=== PATIENT | male | born 1995 | race African-American/Black ===

== ENCOUNTER 2020-01-21 08:07 | Emergency (ER) | payer OTHER, SELFPAY ==
--- NOTE | 2020-01-21 08:11 | ED.GENADULT ---
HPI - General Adult General Chief complaint: Upper Respiratory Infection Stated complaint: not feeling well Time Seen by Provider: 01/21/20 08:11 Source: patient Mode of arrival: ambulatory Limitations: no limitations History of Present Illness HPI narrative: 24-year-old male patient presents to the [facility] with complaints of cold symptoms for the past 6 days. Patient states started with a fever as high as 100. Patient states he has not had a fever recently. Patient states he was tested for COVID yesterday and it came back negative. Patient states he has had sneezing, runny nose, some fullness to the ears, drainage. Patient states at times his chest feels heavy but no shortness of breath or chest pain. No coughing. No abdominal pain, nausea, vomiting or diarrhea. Patient states he has been taking DayQuil and NyQuil for symptoms. Related Data Allergies Allergy/AdvReac Type Severity Reaction Status Date / Time No Known Allergies Allergy Verified 01/21/20 08:31 Review of Systems Review of Systems: Narrative: CONSTITUTIONAL: Positive fever, chills, or sweats. EYES: Denies visual changes, redness, or discharge. ENT: Positive rhinorrhea, sneezing, congestion, denies sore throat, or otalgia. Positive fullness to bilateral ears CARDIOVASCULAR: Denies chest pain, palpitations, or edema. RESPIRATORY: Denies cough or dyspnea. GASTROINTESTINAL: Denies abdominal pain, nausea, vomiting, or diarrhea. GENITOURINARY: Denies dysuria or hematuria. SKIN: Denies rash or itching. MUSCULOSKELETAL: Denies back pain, joint pain, or myalgia. NEUROLOGIC: Denies headache, numbness, or weakness. PSYCHIATRIC: Denies anxiety or depression. PMFSH Social History Social History Gender identity (if verbalized by the patient): Male Comments At the time of my signature I agree with nursing past medical history, surgical, social, and family history. There is no relevant family history pertinent to the presenting complaint. Exam Narrative: Exam Narrative: GENERAL: Well-appearing, well-nourished, and in no acute distress. HEAD: Normocephalic, atraumatic. EYES: PERRLA and EOMI. ENT: Nares with erythema and edema noted bilaterally, clear rhinorrhea, no epistaxis. Mucous membranes moist. Posterior pharynx with slight erythema present no tonsil enlargement, no exudates or lesions present. Bilateral TMs do have some injection but no erythema to the TM, slight fluid noted behind left ear. NECK: Supple. No lymphadenopathy CHEST: Clear to auscultation. No respiratory distress. Patient able talk in clear complete sentences. No tripoding noted. HEART: Regular rate and rhythm. No murmur heard. Normal peripheral pulses. ABDOMEN: Soft, nontender, nondistended, normal active bowel sounds. EXTREMITIES: Normal range of motion. No edema. SKIN: Warm, dry, no rash. NEURO: No focal deficits. Alert and oriented x3. Course Reevaluation(s) Reevaluation #1: Reevaluated patient after clinical and strep are resulted. Discussed with flu and strep today are negative. Discussed with mother that I think this is most likely sinus issues or allergic rhinitis due to the fact that he has sneezing symptoms. Discussed with him and we will send him home with a daily antihistamine as well as a nasal steroid to help the symptoms. Discussed with him that since he does have URI symptoms and even though he did have a negative COVID test like still cannot release him back to work he needs to refer either to the [facility] department or his employer on when he can return to work after having a negative COVID test. Patient verbalized understanding of this denies any other questions or concerns at this time. Date: 01/21/20 Time: 08:54 Vital Signs Vital signs: Vital Signs Temperature 36.7 C 01/21/20 08:21 Pulse Rate 79 01/21/20 08:21 Respiratory Rate 16 01/21/20 08:21 Blood Pressure 137/91 H 01/21/20 08:21 Pulse Oximetry
[2020-01-21 08:21] VITALS: BP 137/91; PULSE 79; RESP 16; TEMP 36.7; O2SAT 99
== END 2020-01-21 08:52 | disposition home or self-care (01) ==
PROVIDERS: Emergency Provider Nurse Practitioner Family
DX: J06.9 Acute upper respiratory infection, unspecified (principal); J30.2 Other seasonal allergic rhinitis
CPT/HCPCS: 87081; 87804; 87880; 99213; G0463

== ENCOUNTER 2020-01-23 08:09 | Emergency (ER) | payer OTHER, SELFPAY ==
--- NOTE | ~2020-01-23 | XR_ITS ---
EXAMINATION: XR chest 2V EXAM DATE: 01/23/2020 09:12 INDICATION: Right rib pain. Lifting injury. TECHNIQUE: Frontal and lateral projections of the chest obtained and reviewed. There is no prior natalie dy for comparison. FINDINGS: The lungs are clear. There are no pleural effusions. The cardiomediastinal silhouette is within normal limits. There is no pneumothorax suspected. The bones and soft tissues are unremarkab le. IMPRESSION: Normal chest x-ray exam. Reviewed, dictated and finalized at location A. IMPRESSION: Normal chest x-ray exam.
[2020-01-23 08:15] VITALS: BP 148/100; PULSE 74; RESP 18; TEMP 36.7; O2SAT 100
[2020-01-23] MEDS: KETOROLAC 30 MG/ML VIAL (*BKC) IV PUSH (09:02)
[2020-01-23 09:04] LABS: Basophils Absolute Auto 0.1 K/mm3 (0.0-0.1); Basophils Percent Auto 0.8 % (0.2-1.2); Eosinophils Absolute Auto 0.1 K/mm3 (0-0.3); Eosinophils Percent Auto 1.1 % (0-4.4); Hematocrit 42.8 % (42.0-52.0); Immature Granulocyte Absolute 0.01 K/mm3 (0.00-0.031); Immature Granulocyte Percent A 0.2 % (0-0.5); Lymphocytes Absolute Auto 1.73 K/mm3 (0.9-3.2); Mean Corpuscular HGB Conc 32.7 g/dl (32-36); Mean Corpuscular Hemoglobin 28.4 pg (26-34); Mean Corpuscular Volume 86.8 fl (80-100); Mean Platelet Volume 9.9 fl (7.4-10.4); Monocytes Absolute Auto 0.3 K/mm3 (0.1-0.6); Monocytes Percent Auto 5.5 % (2.6-8.5); Neutrophils Percent Auto 64.4 % (45.5-73.1); Platelet Count Result 182 k/mm3 (150-375); Red Blood Count 4.93 M/mm3 (4.6-6.20); Red Cell Distribution Width 14.6 % (11.5-14.5); White Blood Count 6.2 K/mm3 (4.5-10.0)
[2020-01-23 09:06] LABS: Add Urine Microscopic? NO; Appearance Urine Clear (Clear); Bilirubin Urine Negative (Negative); Blood Urine Negative (Negative); Color Urine Yellow (Yellow); Glucose Urine UA Negative (Negative); Ketones Urine Negative (Negative); Leukocyte Esterase Ur Negative LEU/UL (Negative); Nitrate Urine Negative (Negative); Protein Urine Negative (Negative); Specific Grav Ur 1.027 (1.001-1.035); Urobilinogen Urine Negative mg/dL (<2.0)
[2020-01-23 09:15] LABS: Alanine Aminotransferase 19 U/L (4-50); Albumin Level 4.2 g/dL (3.5-5.1); Alkaline Phosphatase 52 U/L (38-126); Anion Gap 3 mmol/L (8-16); Aspartate Amino Transferase 28 U/L (17-59); Bilirubin,Total 0.5 mg/dL (0.2-1.3); Blood Urea Nitrogen 13 mg/dL (9-20); Calcium 8.8 mg/dL (8.4-10.2); Carbon Dioxide 31 mmol/L (22-30); Chloride 103 mmol/L (98-107); Estimated CRCL calculation 122 ml/min; Estimated Glomerular Filt Rate > 60; Glucose 100 mg/dL (75-110); Lipase 39 U/L (23-300); Sodium 137 mmol/L (137-145)
[2020-01-23 09:19] LABS: Prothrombin Time 13.2 Seconds (11.1-14.7)
[2020-01-23 09:41] LABS: D Dimer 0.27 ug/mL (<0.48)
[2020-01-23 09:42] VITALS: BP 149/92; PULSE 87; RESP 18; O2SAT 100
--- NOTE | 2020-01-23 11:03 | ED.GENADULT ---
HPI - General Adult General Chief complaint: Unspecified Stated complaint: rt rib pain Time Seen by Provider: 01/23/20 08:26 Source: patient Mode of arrival: ambulatory Limitations: no limitations History of Present Illness HPI narrative: This patient is a 24 year old male who presents for right rib pain. He states he developed right lateral rib pain Thursday after caring his son. He denies any other trauma. He denies cough, fever, sob, nausea or vomiting. He denies abdominal pain. He has not taken anything for pain. Related Data Allergies Allergy/AdvReac Type Severity Reaction Status Date / Time No Known Allergies Allergy Verified 01/21/20 08:31 Review of Systems Review of Systems: All systems reviewed & are unremarkable except as noted in HPI and below Constitutional: Constitutional: Denies chills and Denies fever(s) ENT: Denies dizziness Respiratory: Respiratory: Denies cough, Denies dyspnea and Denies wheezing Gastrointestinal: Gastrointestinal: Denies abdominal pain, Denies nausea and Denies vomiting PMFSH Past Medical History Medical History (Updated 01/23/20 @ 11:26 by Cookie Meneses MD) Patient denies medical problems Surgical History Surgical History (Updated 01/23/20 @ 11:05 by Cookie Meneses MD) No pertinent past surgical history Social History Social History Gender identity (if verbalized by the patient): Male Exam Const: General: no acute distress and alert Orientation/consciousness: patient oriented x3 Eyes: Pupils: Equal, round and reactive pupils present EOM: EOMs intact bilaterally Neck: Neck: normal visual inspection and no lymphadenopathy Chest: Chest palpation & inspection: tenderness (right lateral rib) Resp: Effort & Inspection: normal respiratory effort, no retractions and no use of accessory muscles Auscultation: clear to auscultation bilaterally Cardio: Rate: regular rate Rhythm: regular rhythm Heart sounds: no murmurs GI: GI Palp: Yes Soft to palpation, No Tenderness to palpation present (GI), No Guarding due to palpation present (GI), No Rigid due to palpation and No Hernia present Back/Spine/Pelvis: Back: no CVA tenderness Skin: General skin exam: normal color Rashes: no rashes Neuro: General: patient oriented x3, moves all extremities and CN's II-XI intact bilaterally Extrem: General: normal to inspection Psych: Mental Status: mental status grossly normal Affect: normal affect Course Reevaluation(s) Reevaluation #1: I Discussed with patient that labs are unremarkable. His pain has improved. This appears to be muscular. Date: 01/23/20 Time: 11:25 Vital Signs Vital signs: Vital Signs Temperature 98.0 F 01/23/20 08:15 Pulse Rate 74 01/23/20 08:15 Respiratory Rate 18 01/23/20 08:15 Blood Pressure 148/100 H 01/23/20 08:15 Pulse Oximetry 100 01/23/20 08:15 Temperature 98.0 F 01/23/20 08:15 Pulse Rate 78 01/23/20 11:45 Respiratory Rate 16 01/23/20 11:45 Blood Pressure 118/75 01/23/20 11:45 Pulse Oximetry 100 01/23/20 11:45 Medical Decision Making Vital Signs Vital Signs: Vital Signs Temperature 98.0 F 01/23/20 08:15 Pulse Rate 74 01/23/20 08:15 Respiratory Rate 18 01/23/20 08:15 Blood Pressure 148/100 H 01/23/20 08:15 Pulse Oximetry 100 01/23/20 08:15 Temperature 98.0 F 01/23/20 08:15 Pulse Rate 78 01/23/20 11:45 Respiratory Rate 16 01/23/20 11:45 Blood Pressure 118/75 01/23/20 11:45 Pulse Oximetry 100 01/23/20 11:45 Lab Data Lab results reviewed: Yes I reviewed the patient's lab results. Result diagrams: 01/23/20 08:51 01/23/20 08:51 Labs: Lab Results 01/23/20 01/23/20 01/23/20 Range/Units 08:51 08:51 08:51 WBC 6.2 (4.5-10.0) K/mm3 RBC 4.93 (4.6-6.20) M/mm3 Hgb 14.0 (14.0-18.0) g/dL Hct 42.8 (42.0-52.0) % MCV 86.8 (80-100) f
--- NOTE | 2020-01-23 11:07 | PC.NURSE ---
REPORT GIVEN TO CRYSTAL MOCTEZUMA AT THE BEDSIDE AT THIS TIME, SHE HAS ASSUMED PT CARE.
[2020-01-23 11:45] VITALS: BP 118/75; PULSE 78; RESP 16; O2SAT 100
== END 2020-01-23 11:46 | disposition home or self-care (01) ==
PROVIDERS: Emergency Provider General Practice
DX: R07.81 Pleurodynia (principal)
CPT/HCPCS: 36415; 71046; 80053; 81003; 83690; 85025; 85380; 85610; 85730; 96374; 99284; J1885

== ENCOUNTER 2021-02-17 16:59 | Emergency (ER) | payer OTHER, SELFPAY ==
--- NOTE | ~2021-02-17 | CT_ITS ---
EXAMINATION: CT abdomen pelvis w con DATE: 02/17/2021 19:58 INDICATION: Flank pain TECHNIQUE: Computed tomography (CT) of the abdomen and pelvis was performed with 100 mL Omnipaque-350 intravenous contrast. Automated exposure control and iterative reconstruction technique were employe d. The dose-length product was 250.79 mGy-cm. COMPARISON: None FINDINGS: Lung bases are clear. Heart size is normal. No pericardial or pleural effusion. Focal hepatic steatos is at the ligamentum teres. Gallbladder, spleen, pancreas, bilateral adrenal glands and kidneys are n ormal. No abnormal bowel wall thickening or obstruction. Appendix is normal. Bladder is normal. No fr ee intraperitoneal gas or fluid. No pathologically enlarged abdominal or pelvic lymphadenopathy. Bone s are unremarkable. IMPRESSION: 1. No urolithiasis or acute intra-abdominal/pelvic process. Reviewed, dictated and finalized at location A.
[2021-02-17 17:07] VITALS: BP 115/88; PULSE 71; RESP 18; TEMP 36.7; O2SAT 98
[2021-02-17 18:39] LABS: Add Urine Microscopic? YES; Bilirubin Urine Negative (Negative); Blood Urine 3+ (Negative); Glucose Urine UA Negative (Negative); Ketones Urine Negative (Negative); Leukocyte Esterase Ur Negative LEU/UL (Negative); Nitrate Urine Negative (Negative); Protein Urine 3+ mg/dL (Negative); Urobilinogen Urine Negative mg/dL (<2.0)
[2021-02-17 18:40] LABS: Specific Grav Ur 1.031 (1.001-1.035)
[2021-02-17 18:41] LABS: Appearance Urine Turbid (Clear); Color Urine Dark Red (Yellow)
[2021-02-17 18:45] LABS: RBC Urine >75 /hpf (0-2); WBC Urine 0-3 /hpf
[2021-02-17 19:25] VITALS: BP 137/81; PULSE 65; RESP 16; O2SAT 100
[2021-02-17 19:28] LABS: Basophils Percent Auto 0.7 % (0.2-1.2); Eosinophils Absolute Auto 0.1 K/mm3 (0-0.3); Eosinophils Percent Auto 1.5 % (0-4.4); Hematocrit 46.2 % (42.0-52.0); Immature Granulocyte Absolute 0.01 K/mm3 (0.00-0.031); Immature Granulocyte Percent A 0.2 % (0-0.5); Lymphocytes Absolute Auto 2.23 K/mm3 (0.9-3.2); Lymphocytes Percent Auto 36.4 % (18.3-44.2); Mean Corpuscular HGB Conc 32.5 g/dl (32-36); Mean Corpuscular Hemoglobin 28.7 pg (26-34); Mean Corpuscular Volume 88.3 fl (80-100); Mean Platelet Volume 9.8 fl (7.4-10.4); Monocytes Absolute Auto 0.5 K/mm3 (0.1-0.6); Monocytes Percent Auto 8.5 % (2.6-8.5); Neutrophils Absolute Auto 3.2 K/mm3 (1.3-6.7); Neutrophils Percent Auto 52.7 % (45.5-73.1); Platelet Count Result 172 k/mm3 (150-375); Red Blood Count 5.23 M/mm3 (4.6-6.20); Red Cell Distribution Width 15.4 % (11.5-14.5); White Blood Count 6.1 K/mm3 (4.5-10.0)
[2021-02-17] MEDS: SODIUM CHLORIDE 0.9% IV 1,000 ML 999 ML IV CONT (19:33)
[2021-02-17 19:39] LABS: Alanine Aminotransferase 19 U/L (4-50); Albumin Level 5.3 g/dL (3.5-5.1); Alkaline Phosphatase 65 U/L (38-126); Anion Gap 10 mmol/L (8-16); Aspartate Amino Transferase 30 U/L (17-59); Bilirubin,Total 0.7 mg/dL (0.2-1.3); Blood Urea Nitrogen 14 mg/dL (9-20); Calcium 9.8 mg/dL (8.4-10.2); Carbon Dioxide 32 mmol/L (22-30); Chloride 99 mmol/L (98-107); Estimated CRCL calculation 96 ml/min; Estimated Glomerular Filt Rate > 60; Glucose 95 mg/dL (65-110); Lipase 53 U/L (23-300); Potassium 3.9 mmol/L (3.4-5.0); Sodium 141 mmol/L (137-145)
--- NOTE | 2021-02-17 20:30 | ED.MALEGU ---
HPI - Male Genitourinary General Chief complaint: Urogenital-Male Stated complaint: unable to urinate, hematuria Time Seen by Provider: 02/17/21 17:14 Source: patient Mode of arrival: ambulatory Limitations: no limitations History of Present Illness HPI Narrative: 25-year-old male complaining of 2-week to 3-week history of blood in his ejaculate now with gross hematuria. No flank pain, no urethral trauma, denies fever, denies urethral discharge. No previous history of same. No scrotal pain no scrotal swelling no scrotal masses per patient. Patient was seen by primary doctor and was given a Cipro prescription on Thursday but he still having gross heamturia from the urethral meatus. Related Data Allergies Allergy/AdvReac Type Severity Reaction Status Date / Time No Known Allergies Allergy Verified 02/17/21 17:17 Review of Systems Review of Systems: CONSTITUTIONAL: no fever, no weight loss, no confusion EYES: no vision changes, no eye pain ENT: no rhinorrhea, no sore throat, no difficulty swallowing CARDIOVASCULAR: no chest pain, no leg edema, no palpitations RESPIRATORY: no cough, no shortness of breath, no hemoptysis GASTROINTESTINAL: no abdominal pain, no nausea, no vomiting, no diarrhea GENITOURINARY: no flank pain, no dysuria, painless gross hematuria SKIN: no rash, no jaundice MUSCULOSKELETAL: no back pain, no trauma. NEUROLOGIC: No headache, no dizziness, no focal weakness PSYCHIATRIC: No hallucinations, no suicidal ideation PMFSH Past Medical History Medical History Patient denies medical problems Surgical History Surgical History No pertinent past surgical history Social History Social History Gender identity (if verbalized by the patient): Male Exam Narrative: General: alert, afebrile, answering all questions appropriately Head: normocephalic, atraumatic Eyes: EOMI bilaterally, anicteric, no injection ENT: moist mucous membranes, oropharynx patent, no rhinorrhea Neck: supple, trachea midline, no JVD Chest: equal chest rise bilaterally, no chest wall trauma noted Abd: soft, non-distended, non-tender, no rebound, no gaurding, negative Noriega's : no CVA tenderness B, bladder non-distended, no scrotal swelling, no uretheral discharge Back: no lumbar bony tenderness. paraspinal muscles without spasm EXT: no deformity noted, moving all extremities equally Skin: warm, dry, no pallor Neuro: alert, oriented x 3; CN 2-12 grossly intact, no dysarthria Psych: affect appropriate, though content normal Course Vital Signs Vital signs: Vital Signs Temperature 36.7 C 02/17/21 17:07 Pulse Rate 71 02/17/21 17:07 Respiratory Rate 18 02/17/21 17:07 Blood Pressure 115/88 02/17/21 17:07 Pulse Oximetry 98 02/17/21 17:07 Temperature 36.7 C 02/17/21 17:07 Pulse Rate 81 02/17/21 21:35 Respiratory Rate 16 02/17/21 21:35 Blood Pressure 128/95 H 02/17/21 21:35 Pulse Oximetry 100 02/17/21 21:35 MDM - Male Genitourinary MDM Narrative Medical decision making narrative: Patient taking Cipro but now with gross hematuria painless denies STD risk factors, urine is grossly bloody. No fever, no flank pain, no abdominal pain no recent weight loss denies scrotal masses and scrotal swelling and scrotal pain. No previous history of same Differential Diagnosis Differential diagnosis: Likely urinary tract infection, urethritis, epididymitis, prostatitis and other (Urethral trauma,) Medical Records Attestation: I reviewed the patient's medical records. Lab Data Attestation: I reviewed the patient's lab results. Result diagrams: 02/17/21 19:20 02/17/21 19:20 Labs: Lab Results 02/17/21 02/17/21 02/17/21 Range/Units 18:21 19:20 19:20 WBC 6.1 (4.5-10.0) K/mm3 RBC 5.23 (4.6-6.20) M/mm3 Hgb 15.0
[2021-02-17 21:35] VITALS: BP 128/95; PULSE 81; RESP 16; O2SAT 100
== END 2021-02-17 21:36 | disposition home or self-care (01) ==
PROVIDERS: Emergency Provider Emergency Medicine; PCP Internal Medicine
DX: R31.0 Gross hematuria (principal)
CPT/HCPCS: 36415; 74177; 80053; 81001; 83690; 83735; 85025; 87491; 87591; 96360; 99284; J7030; Q9967

== ENCOUNTER 2021-02-18 07:37 | Outpatient (CLI) | payer OTHER, SELFPAY ==
--- NOTE | ~2021-02-18 | US_ITS ---
EXAMINATION: US scrotum doppler DATE: 02/18/2021 08:45 INDICATION: Gross hematuria TECHNIQUE: Testicular sonogram utilizing grayscale and Doppler COMPARISON: None. FINDINGS: The right testis measures 4.2 x 3.3 x 2.0 cm. The left testis measures 2.8 x 3.1 x 1.7 cm. Symmetric normal grayscale appearance to both testes. There is normal vascular flow to both testes. The right e pididymis is normal with normal vascular flow. The left epididymis is normal with normal vascular eugene w. There is no varicocele or hydrocele. IMPRESSION: 1. Normal scrotal ultrasound. Reviewed, dictated and finalized at location A.
== END 2021-02-18 07:38 | disposition home or self-care (01) ==
PROVIDERS: PCP Internal Medicine; Visit Provider Urology
DX: R31.0 Gross hematuria (principal)
CPT/HCPCS: 76870; 93976

== ENCOUNTER 2021-05-06 11:16 | Emergency (ER) | payer OTHER, SELFPAY ==
[2021-05-06 11:52] VITALS: BP 127/84; PULSE 85; RESP 16; TEMP 37.8; O2SAT 100
--- NOTE | 2021-05-06 12:53 | ED.NAVMDI ---
HPI - Nausea/Vomiting/Diarrhea General Chief complaint: Nausea/Vomiting/Diarrhea Stated complaint: nausea congestion achey Source: patient and RN notes reviewed Mode of arrival: ambulatory History of Present Illness HPI Narrative: This is a 25-year-old male who presented to urgent care today with complaints of nausea vomiting , shortness of breath ,back and stomach pain, congestion, headache, nonproductive cough. According to patient he developed symptoms. He did not take anything at home to relieve the symptoms. The patient denies CP, palpitation, extremity numbness, lightheadedness, dizziness, constipation, chills, or fever. Related Data Allergies Allergy/AdvReac Type Severity Reaction Status Date / Time No Known Allergies Allergy Verified 02/17/21 17:17 Review of Systems Review of Systems: A 14 organ system Review of Systems was performed and pertinent positives included in the HPI, otherwise remaining ROS is negative. [facility] Past Medical History Medical History Patient denies medical problems Surgical History Surgical History No pertinent past surgical history Family History Family History (Updated 05/06/21 @ 12:55 by FRANSISCA Baldwin) Other Family history non-contributory Social History Social History Gender identity (if verbalized by the patient): Male Exam Narrative: GENERAL: This is a well-nourished, well-developed patient, in no apparent distress. HEAD: normocephalic, atraumatic. EYES: PERRL. Sclera clear/white. Vision is grossly intact. EARS: External ears normal, auditory canals clear and without drainage, TMs normal without perforation. Hearing grossly intact. NOSE: External nose normal with no obvious nasal discharge, nares without redness, no rhinorrhea. THROAT: Mucous membranes moist, posterior pharynx clear. NECK: Neck supple, non-tender without lymphadenopathy, masses or thyromegaly. CARDIOVASCULAR: Regular rate and rhythm without murmurs, gallops, or rubs. RESPIRATORY: Clear to auscultation. Breath sounds equal bilaterally. No wheezes, rales, or rhonchi. GASTROINTESTINAL: Abdomen soft, non-tender, nondistended. Bowel sounds are active. No hepato-splenomegaly, or palpable masses. No guarding. SKIN: warm, intact with no suspicious lesions or rash, good texture and turgor. NEURO: awake, alert, and oriented to person, place and time. There were no obvious focal neurologic abnormalities. Steady gait EXTREMITIES: Normal range of motion. No edema. No calf tenderness. Negative Homans sign bilaterally. BACK: Nontender without deformity or crepitance. No flank tenderness. Course Course Emergency Course: Patient will discharge home with Imodium, Flonase, Claritin, albuterol, guaifenesin, and Tessalon Perles for the treatment of viral illness Vital Signs Vital signs: Vital Signs Temperature 100.0 F H 05/06/21 11:52 Pulse Rate 85 05/06/21 11:52 Respiratory Rate 16 05/06/21 11:52 Blood Pressure 127/84 05/06/21 11:52 Pulse Oximetry 100 05/06/21 11:52 Temperature 100.0 F H 05/06/21 11:52 Pulse Rate 85 05/06/21 11:52 Respiratory Rate 16 05/06/21 11:52 Blood Pressure 127/84 05/06/21 11:52 Pulse Oximetry 100 05/06/21 11:52 MDM - Nausea/Vomiting/Diarrhea MDM Narrative Medical decision making narrative: Patient will be treated for viral illness in Covid pending Differential Diagnosis Differential diagnosis: Likely other (Viral illness versus influenza versus covid) Discharge Plan Discharge Clinical Impression: Viral infection Patient Disposition: Home, Self-Care Condition: Stable Instructions: Antibiotic Form, Viral Syndrome (ED) Additional Instructions: This is likely viral illness, no antibiotic is needed at this time. Treatment is aimed toward your specific symptoms. Yo
== END 2021-05-06 13:07 | disposition home or self-care (01) ==
PROVIDERS: Emergency Provider Nurse Practitioner; PCP Internal Medicine
DX: B34.9 Viral infection, unspecified (principal); Z20.822 Contact with and (suspected) exposure to COVID-19
CPT/HCPCS: 87804; 99213; G0463

== ENCOUNTER 2023-12-16 08:53 | Emergency (ER) | payer OTHER, SELFPAY ==
[2023-12-16 09:03] VITALS: BP 136/91; PULSE 74; RESP 20; TEMP 36.3; O2SAT 100
--- NOTE | 2023-12-16 09:05 | ED.GENADULT ---
HPI - General Adult General Chief complaint: Unspecified Stated complaint: Hemorrhoid Time Seen by Provider: 12/16/23 09:08 Mode of arrival: ambulatory Limitations: no limitations History of Present Illness HPI narrative: 28-year-old male presents with concern for hemorrhoids and constipation. Reports he has been constipated for about 1 week. Reports he recently started taking [id number] medication for constipation which is helping him have softer bowel movements, however he has painful hemorrhoids. Reports he has been using hemorrhoid cream without relief. MD complaint: Constipation, hemorrhoids Related Data Allergies Allergy/AdvReac Type Severity Reaction Status Date / Time No Known Allergies Allergy Verified 02/17/21 17:17 Review of Systems Review of Systems: CONSTITUTIONAL: Denies malaise, chills, sweats, or fever. GASTROINTESTINAL: reports constipation and hemorrhoids SKIN: Denies rash or itching. All systems reviewed & are unremarkable except as noted in HPI and below PMFSH Past Medical History Medical History Patient denies medical problems Surgical History Surgical History No pertinent past surgical history Family History Family History (Updated 05/06/21 @ 12:55 by FRANSISCA Baldwin) Other Family history non-contributory Social History Social History Gender identity (if verbalized by the patient): Male Comments At time of signature, agree with nursing past medical, surgical, social and family history. There is no relevant family history pertinent to the presenting complaint Exam Narrative: GENERAL: Well-appearing, well-nourished, and in no acute distress. HEAD: Normocephalic, atraumatic. EYES: PERRLA, sclera clear, and EOMI. No nystagmus. ENT: Nares clear. Mucous membranes moist. CHEST: No respiratory distress. Speaks in full sentences. HEART: Regular rate and rhythm EXTREMITIES: Normal range of motion. No edema. Normal strength and sensation. SKIN: Warm, dry, no visible rash. NEURO: Alert and oriented x3. PSYCH: Normal mood and affect GI: Rectal Exam: External hemorrhoid(s) present (2 thrombosed) Course Course Emergency Course: Patient is aware of diagnosis, understands and agrees to treatment plan. Anticipatory guidance given. Patient agrees to follow-up as directed and is aware of reasons to seek care at the emergency department. Portions of this record may have been created with voice recognition software Level of Care: Express Care Visit Vital Signs Vital signs: Reviewed. Medical Decision Making MDM Narrative Medical decision making narrative: The patient was evaluated by myself in the emergency department. History is obtained from patient who is an independent historian and physical exam was performed.? Available medical records were reviewed at this time. ? Exam findings and imaging show no acute concerns or changes; patient is non-toxic appearing and is in no distress. Patient is appropriate for outpatient treatment and follow-up. ? I have evaluated and discussed social determinants of health with the patient that could potentially impact subsequent diagnosis and treatment plans. ? Differential diagnosis and treatment plan were discussed with the patient. Patient agrees with discussion and after shared medical decision making agrees with plan of care. All questions were answered to the patient's satisfaction. Critical Care Time Critical Care Time Critical Care Time: No Discharge Plan Discharge Clinical Impression: External hemorrhoids Patient Disposition: Home, Self-Care Condition: Stable Instructions: Constipation (ED), Hemorrhoids (ED) Additional Instructions: Follow-up with general surgery for evaluation of your hemorrhoids, you can call today to get an
== END 2023-12-16 09:31 | disposition home or self-care (01) ==
PROVIDERS: Emergency Provider Nurse Practitioner
DX: K64.4 Residual hemorrhoidal skin tags (principal)
CPT/HCPCS: 99213; G0463

== ENCOUNTER 2023-12-17 12:05 | Day surgery (SDC) | payer OTHER, SELFPAY ==
[2023-12-17] VITALS (11 sets, daily range): BP systolic 106–149; BP diastolic 57–111; PULSE 53–88; RESP 14–20; TEMP 36.2–36.6; O2SAT 98–100; BMI 23.8
--- NOTE | 2023-12-17 11:34 | PC.NURSE ---
Report to the Outpatient Waiting Room, entrance under the green pavilion located off [facility], at time _1200_ on date _[id number]_. Planned Procedure Time: _1400_. Time changes happen often and if your time is changed the preop area will call you the afternoon before. - You and your visitor will be asked to self-screen and do not enter if you have any COVID symptoms. - A mask is optional within the hospital at this time. Patient says he's had nothing to eat or drink today. Take the following medications with a SIP of water the morning of surgery: ____None DO NOT STOP ANY OF YOUR OTHER PRESCRIPTION MEDICATIONS PRIOR TO SURGERY ?EXCEPT THE FOLLOWING Medications to discontinue per physician None Date to take last dose Please no make-up, nail armenian, hairspray, perfume, deodorant, or body powder the day of surgery. No jewelry (including any body piercings) or valuables the day of surgery, leave them at home. Please take a shower or bath the night before, or the morning of, surgery with an antibacterial soap. Wear comfortable, loose fitting clothing. - Jewelry must be removed prior to entering the operating room. Rings and piercings that are not removed may be cut off. - The hospital will not accept responsibility for valuables. - Please leave all valuables, including medications, at home the day of surgery. If you are going home after surgery, a licensed driver's education instructor must drive you home. - NO public transportation without another adult if you receive anesthesia. - We recommend that an adult stay with you for 24 hours following discharge. - We also recommend that you do not drive, make important decision, drink alcoholic beverages, or take any drugs that were not prescribed by your health care provider for at least 24 hours after your discharge time. Follow any additional instructions given to you from your surgeon. If you or anyone in your household have experienced Covid symptoms in the past week, please notify your surgeon or the nurse liaison at the phone number below for possible testing. Telephone instructions given to __Deandre__and asked if any additional questions and then verbalized understanding. Patient advised to call surgeon office or pre surgery nurse liaison [phone] if any additional questions.
[2023-12-17] MEDS: LACTATED RINGERS 1,000 ML 30 ML IV CONT ×2 (13:30→15:40)
[2023-12-17] MEDS: ACETAMINOPHEN 500 MG TABLET 1000 MG PO (13:47)
[2023-12-17] MEDS: KETOROLAC 15 MG/ML VIAL (*BKC) IV PUSH (13:48)
--- NOTE | 2023-12-17 14:03 | P.PNAN_ITS ---
Anes - Initial Pre Proc Eval Procedure: Operation Date: 12/17/23 14:00 Proposed Procedures p Excision Thrombosed External Hemorrhoid - Travis Mcfadden MD Date/Time: 12/17/23 14:03 Surgeon: Travis Mcfadden MD Pre Op Diagnosis: thrombosed hemorrhoid Patient Data Age: 28 Gender: M Height: 1.65 m Weight: 65 kg Allergies Allergy/AdvReac Type Severity Reaction Status Date / Time No Known Allergies Allergy Verified 12/17/23 11:27 Home Medications Medication Instructions Recorded Confirmed Type phenylephrine 0.25 %-cocoa butter 1 supp RECTAL TID PRN hemorrhoids 12/16/23 12/17/23 Rx 88.44 % rectal suppository #12 ea (Hemorrhoidal (phenyleph-cocoa)) Patient hx anesthesia problems: none Family hx anesthesia problems: none Results Review: All pre-operative results and documents have been reviewed as part of the pre- operative evaluation. [facility] Past Medical History Medical History Patient denies medical problems Surgical History Surgical History No pertinent past surgical history Family History Family History Other Family history non-contributory Social History Social History Years smoked: 2 Smoking status: Former smoker Alcohol intake: never Do You Feel Safe in your Home?: Yes Lack of Transportation: No Lack of Food: Never True Current Housing: I Have Housing Concerned About Future Housing: No Difficulty Paying Gas/Electric Bills: No Difficulty Paying for Meds: No Currently Unemployed: No Education: High School Diploma/GED Difficulty w/ Childcare or Family Care: No Living arrangements: with family Gender identity (if verbalized by the patient): Male Spiritual care concerns: No Anes - Eval Final PreProcedure Day of Procedure 12/17/23 14:03 Patient weight: normal Heart: regular rate and rhythm Lungs: clear to auscultation Airway: Mallampati scale class II Neurological: alert and oriented Last oral intake: >/= 8 hours ASA classification: II Emergent: no Anesthetic plan: proceed Anesthesia type and monitoring: general ETT and standard monitoring Results Review: All pre-operative results and documents have been reviewed as part of the pre- operative evaluation. Informed Consent: The patient's anesthetic plan and its attendant risks and benefits were discussed with the patient/family/POA. Questions were solicited and answers provided to the satisfaction of the patient/family/POA.
--- NOTE | 2023-12-17 14:55 | WPDHPUPDATE1 ---
History and Physical Update Update Date/Time: 12/17/23 14:55 History and Physical has been reviewed, including an updated exam of the patient. There are NO changes in the patient's condition. Risks, benefits, and alternatives have been discussed and questions answered. Patient agrees to proceed with procedure.
[2023-12-17] MEDS: BUPIVACAINE/EPINEPHRINE 0.5% 10 ML VIAL 40 ML INFILTRATE (15:00)
[2023-12-17] MEDS: ceFAZolin 2 GM/D5W 50 ML 2 GM/50 ML BAG IVPB (15:00)
--- NOTE | 2023-12-17 15:38 | P.OP_ITS ---
Procedure Note - Detailed Date of Procedure 12/17/23 Pre-op Diagnosis Right thrombosed external hemorrhoids Post-op Diagnosis Same Procedure Performed Excision right-sided thrombosed external hemorrhoids Surgeon Travis Mcfadden MD [employer] Kassie Hopson [facility] Anesthesia General and Local Indications Patient has had painful perianal nodules for 2 weeks. Yesterday he started noticing blood coming from 1 of the nodules. He was seen in the office today and found to have right-sided thrombosed external hemorrhoids, there were 2 thrombosed hemorrhoid side by side. The more posterior of the 2 had some clot leaking from it. He is taken to surgery now for excision. Findings Two thrombosed external hemorrhoids, [id number], right lateral and posterior perianal skin Description of Procedure Patient was taken to surgery and induced into general anesthesia. He was then placed in prone jefe-knife position. The buttocks were taped apart. Prep and drape was carried out. Local anesthetic was infiltrated all around the 2 thrombosed hemorrhoids. The area was completely anesthetized. I then excised the more posterior, larger, external hemorrhoid. This was the 1 with leakage of the clot. Once this was excised, I used this opening and excised the more lateral right-sided thrombosed hemorrhoid. Both hemorrhoids were sent to pathology labeled thrombosed external hemorrhoid. There were sign in 1 container. The wound was made hemostatic with the cautery. I then closed the wound with interrupted 3-0 chromic suture. I inspected the wound a couple of different times and it appeared adequately hemostatic. No other anorectal pathology was noted. The rectum was dressed with Xeroform gauze, fluffs and Medipore tape. Patient was then returned to a supine position, awakened and taken to recovery in good condition. Sponge and needle counts were correct x2. Estimated Blood Loss -5 Drains No Packing No Pathology Yes (Thrombosed external hemorrhoids) Complications None Condition Stable Disposition PACU [facility] Billing Surgery - Charge Forward: Surgery Billing (Excision thrombosed external hemorrhoids)
[2023-12-17] MEDS: oxyCODONE HCL (*CRX) 5 MG TAB IR PO (17:10)
== END 2023-12-17 17:54 | disposition home or self-care (01) ==
PROVIDERS: Visit Provider Surgery
PROC: (CPT 46320; principal; 2023-12-17 14:00)
DX: K64.5 Perianal venous thrombosis (principal); Z87.891 Personal history of nicotine dependence
CPT/HCPCS: 46320; 88304; A9270; J0690; J1100; J1885; J2250; J2405; J2704; J3010; J7120